=== PATIENT | female | born 1985 | race Caucasian/White ===

== ENCOUNTER 2017-06-23 10:15 | Emergency (ER) | payer MEDICAID ==
[~2017-06-23] VITALS: Ht 160 cm; Wt 80.5 kg
[2017-06-23] MEDS ORDERED: ONDANSETRON 2MG/ML, 2ML IVPush ONE (12:00)
[2017-06-23] MEDS ORDERED: SODIUM CHLORIDE 0.9% 1,000ML IVBOLUS ONE (12:00)
[2017-06-23] MEDS ORDERED: ONDANSETRON 2MG/ML, 2ML ONE (12:10)
[2017-06-23] MEDS ORDERED: HYDROmorphone 2 MG/ML, 1ML ONE ×2 (12:10→14:44)
[2017-06-23] MEDS: HYDROmorphone 1 MG/ML, 1ML IVPush PRN ×2 (12:12→14:50)
[2017-06-23 12:14] LABS: BASOPHILS # (AUTO) 0.07 x10^3/uL (0-0.1); BASOPHILS % (AUTO) 1 % (0-1); EOSINOPHILS # (AUTO) 0.02 x10^3/uL (0-0.4); EOSINOPHILS % (AUTO) 0 % (1-7); LYMPHOCYTES # (AUTO) 2.22 x10^3/uL (1-3.4); LYMPHOCYTES % (AUTO) 21 % (22-44); MD NO; MEAN CORPUSCULAR HEMOGLOBIN 21.6 pg (27.0-34.8); MEAN CORPUSCULAR HGB CONC 31.1 g/dL (32.4-35.8); MEAN CORPUSCULAR VOLUME 69.4 fL (80-100); MEAN PLATELET VOLUME 6.9 fL (7.4-10.4); MONOCYTES # (AUTO) 0.37 x10^3/uL (0.2-0.8); MONOCYTES % (AUTO) 4 % (2-9); NEUTROPHILS # (AUTO) 7.89 x10^3/uL (1.8-6.8); NEUTROPHILS % (AUTO) 75 % (42-75); PLATELET COUNT 643 x10^3/uL (130-400); RED BLOOD COUNT 5.78 x10^6/uL (3.82-5.3); RED CELL DISTRIBUTION WIDTH 21.6 % (9.6-15.2)
[2017-06-23 12:27] LABS: ALANINE AMINOTRANSFERASE 75 U/L (12-78); ALBUMIN 4.1 g/dL (3.4-5.0); ANION GAP 8 mmol/L (5-15); CALCIUM 8.9 mg/dL (8.5-10.1); CHLORIDE 104 mmol/L (98-107); CREATININE 0.78 mg/dL (0.55-1.02)
[2017-06-23 12:29] LABS: ALKALINE PHOSPHATASE 157 U/L (45-117); BILIRUBIN,TOTAL 0.5 mg/dL (0.2-1.0); TOTAL PROTEIN 8.1 g/dL (6.4-8.2)
[2017-06-23 13:21] LABS: MICROSCOPIC NOT IND
[2017-06-23 13:27] LABS: CULTURE INDICATED? NO
[2017-06-23] MEDS ORDERED: OMNIPAQUE 350 MG/ML, 100ML BOTTLE ONE (13:59)
[2017-06-23] MEDS ORDERED: PROMETHAZINE 25 MG/ML, 1ML ONE (14:44)
[2017-06-23] MEDS ORDERED: PROMETHAZINE 25 MG/ML, 1ML IM ONE (15:00)
[2017-06-23 16:06] VITALS: BP 114/47
== END 2017-06-23 16:32 | disposition home or self-care (01) ==
LOC: ED 14:35
DX: G89.29 Other chronic pain (principal); R10.13 Epigastric pain; R11.2 Nausea with vomiting, unspecified; Z86.711 Personal history of pulmonary embolism
CPT/HCPCS: 36415; 74177; 80053; 81003; 81025; 83690; 85025; 96361; 96372; 96374; 96375; 96376; 99285; J1170; J2405; J2550; J7030; Q9967

== ENCOUNTER 2018-02-21 09:40 | Emergency (ER) | payer OTHER ==
[~2018-02-21] VITALS: Ht 157.5 cm; Wt 67.5 kg
[~2018-02-21 09:40] MED LIST: ONDA8TAB12 PO; PROM12.553 RC; SERT100T PO; SUCR1TAB33 PO
[2018-02-21] MEDS ORDERED: METOCLOPRAMIDE 5 MG/ML, 2ML IVPush ONE (10:30)
[2018-02-21] MEDS ORDERED: SODIUM CHLORIDE 0.9% 1,000ML IVBOLUS ONE (10:30)
[2018-02-21] MEDS ORDERED: FAMOTIDINE 20 MG/2 ML IVP ONE (10:30)
[2018-02-21] MEDS ORDERED: KETOROLAC 30 MG/1 ML IVPush ONE (10:30)
[2018-02-21] MEDS ORDERED: SODIUM CHLORIDE FLUSH 10ML SYR IVF ONE (10:30)
[2018-02-21] MEDS ORDERED: KETOROLAC 30 MG/1 ML ONE (10:38)
[2018-02-21] MEDS ORDERED: FAMOTIDINE 20 MG/2 ML ONE (10:38)
[2018-02-21] MEDS ORDERED: METOCLOPRAMIDE 5 MG/ML, 2ML ONE (10:38)
[2018-02-21 11:24] VITALS: BP 129/72
[2018-02-21 11:30] LABS: MICROSCOPIC INDICATED
[2018-02-21 11:31] LABS: HCG UR SG 1.025 (1.003-1.030)
[2018-02-21 11:37] LABS: CULTURE INDICATED? YES
== END 2018-02-21 11:51 | disposition home or self-care (01) ==
LOC: ED 10:26
DX: R11.14 Bilious vomiting (principal); K29.20 Alcoholic gastritis without bleeding; Z86.718 Personal history of other venous thrombosis and embolism; F32.9 Major depressive disorder, single episode, unspecified
CPT/HCPCS: 81001; 81025; 87086; 93005; 96361; 96374; 96375; 99285; J1885; J2765; J7030; S0028

== ENCOUNTER 2018-12-27 06:13 | Emergency (ER) | payer SELFPAY ==
[~2018-12-27] VITALS: Ht 160 cm; Wt 75.6 kg
[2018-12-27] MEDS ORDERED: LORA-445 PO (06:17)
[2018-12-27] MEDS ORDERED: TRAZ-137 PO (06:17)
[2018-12-27] MEDS ORDERED: LITH150C PO (06:17)
[2018-12-27] MEDS ORDERED: SODIUM CHLORIDE 0.9% 1,000ML IVBOLUS ONE (06:30)
[2018-12-27] MEDS ORDERED: MAALOX/HYOSCYAMINE/LIDOCAINE 45 ML BTL PO ONE (06:30)
[2018-12-27] MEDS ORDERED: FAMOTIDINE 20 MG/2 ML IVP ONE (06:30)
[2018-12-27] MEDS ORDERED: SODIUM CHLORIDE FLUSH 10ML SYR IVF ONE (06:30)
[2018-12-27] MEDS ORDERED: ONDANSETRON 2MG/ML, 2ML IVPush ONE (06:30)
--- NOTE | 2018-12-27 06:45 | NUR ---
PT AMBULATED BACK TO ROOM. PT COMPLAINING OF N/V/D SINCE MONDAY. PIV ATTEMPTED WITH NO SUCCESS.
--- NOTE | 2018-12-27 07:04 | NUR ---
PIV ESTABLISHED. PT TOLERATED WITH NO COMPLICATIONS. PT PLACED ON CONT PULSE OX, NIBP. NO ACUTE DISTRESS NOTED. PT STATES SHE QUIT DRINKING A FEW WEEKS AGO.
--- NOTE | 2018-12-27 07:04 | NUR ---
LATE ENTRY FOR 0650 RECEIVED BEDSIDE REPORT FROM PATRICIA LUBIN.
[2018-12-27] MEDS ORDERED: MAALOX/HYOSCYAMINE/LIDOCAINE 45 ML BTL ONE (07:11)
[2018-12-27] MEDS ORDERED: ONDANSETRON 2MG/ML, 2ML ONE (07:11)
[2018-12-27] MEDS ORDERED: FAMOTIDINE 20 MG/2 ML ONE (07:12)
[2018-12-27 07:21] LABS: BASOPHILS # (AUTO) 0.03 x10^3/uL (0-0.1); BASOPHILS % (AUTO) 1 % (0-1); EOSINOPHILS # (AUTO) 0.13 x10^3/uL (0-0.4); EOSINOPHILS % (AUTO) 3 % (1-7); LYMPHOCYTES # (AUTO) 1.42 x10^3/uL (1-3.4); LYMPHOCYTES % (AUTO) 27 % (22-44); MD NO; MEAN CORPUSCULAR HEMOGLOBIN 30.8 pg (27.0-34.8); MEAN CORPUSCULAR HGB CONC 32.7 g/dL (32.4-35.8); MEAN CORPUSCULAR VOLUME 94.2 fL (80-100); MEAN PLATELET VOLUME 6.5 fL (7.4-10.4); MONOCYTES # (AUTO) 0.23 x10^3/uL (0.2-0.8); MONOCYTES % (AUTO) 4 % (2-9); NEUTROPHILS # (AUTO) 3.38 x10^3/uL (1.8-6.8); NEUTROPHILS % (AUTO) 65 % (42-75); PLATELET COUNT 324 x10^3/uL (130-400); RED BLOOD COUNT 5.37 x10^6/uL (3.82-5.3); RED CELL DISTRIBUTION WIDTH 14.4 % (9.6-15.2)
[2018-12-27 07:32] LABS: ALANINE AMINOTRANSFERASE 214 U/L (12-78); ALBUMIN 3.9 g/dL (3.4-5.0); ANION GAP 8 mmol/L (5-15); CALCIUM 9.1 mg/dL (8.5-10.1); CHLORIDE 107 mmol/L (98-107); CREATININE 0.81 mg/dL (0.55-1.02)
[2018-12-27 07:37] LABS: ALKALINE PHOSPHATASE 300 U/L (45-117); BILIRUBIN,TOTAL 0.3 mg/dL (0.2-1.0); TOTAL PROTEIN 7.3 g/dL (6.4-8.2)
[2018-12-27 08:11] VITALS: BP 129/84
--- NOTE | 2018-12-27 08:11 | NUR ---
Patient/Caregiver given discharge instructions and they have confirmed that they understand the instructions. Patient ambulatory with steady gait. [PT LEFT WITH ALL PERSONAL BELONGINGS.
== END 2018-12-27 08:15 | disposition home or self-care (01) ==
LOC: ED 07:35
DX: R11.2 Nausea with vomiting, unspecified (principal); R19.7 Diarrhea, unspecified; R94.5 Abnormal results of liver function studies; G40.909 Epilepsy, unspecified, not intractable, without status epilepticus
CPT/HCPCS: 36415; 80053; 83690; 84703; 85025; 96361; 96374; 96375; 99283; J2405; J3490; J7030